=== PATIENT | female | born 1975 | race Asian ===

== ENCOUNTER 2023-10-14 18:57 | Emergency (ER) | payer OTHER ==
[2023-10-14 19:23] VITALS: BP 121/83; PULSE 66; RESP 16; TEMP 98.1; BMI 22.6
[2023-10-14] MEDS ORDERED: DIPHTH,PERTUSS(ACELL),TET 0.5 ML DISP.SYRIN IM ONE (19:34)
[2023-10-14] MEDS: DIPHTH,PERTUSS(ACELL),TET 0.5 ML DISP.SYRIN IM ONE (19:37)
[2023-10-14] MEDS: THROMBIN (BOVINE) 5,000 UNIT VIAL TP ONE (20:53)
[2023-10-14] MEDS ORDERED: CEPHALEXIN MONOHYDRATE 250 MG CAPSULE (FP) ONE (20:57)
[2023-10-14] MEDS: CEPHALEXIN MONOHYDRATE 250 MG CAPSULE (FP) PO ONE (20:59)
== END 2023-10-14 21:03 | disposition home or self-care (01) ==
LOC: FER 18:57
PROC: 3E0234Z Introduction of Serum, Toxoid and Vaccine into Muscle, Percutaneous Approach (ICD-10-PCS; principal; 2023-10-14)
DX: S61.212A Laceration without foreign body of right middle finger without damage to nail, initial encounter (principal); W26.8XXA Contact with other sharp object(s), not elsewhere classified, initial encounter; Y93.D9 Activity, other involving arts and handcrafts
CPT/HCPCS: 90715; 99284-25